=== PATIENT | male | born 1990 | race Caucasian/White ===

== ENCOUNTER 2021-11-28 15:11 | Emergency (ER) | payer OTHER, SELFPAY ==
[2021-11-28 15:12] VITALS: BP 138/82; PULSE 84; RESP 16; TEMP 36.7; O2SAT 97; BMI 20.2
--- NOTE | 2021-11-28 15:34 | EDS_ITS ---
HPI History of Present Illness Chief Complaint: Wound Informant: patient Narrative Narrative: Patient has multiple injuries around the face and head from a cat. It got spooked when a dog jumped on the bed with it. The cat is completely up-to-date on all its shots as it is getting ready to fly back to [facility] today. The patient states he does not think it bit him but he is not 100% sure. It did not get into or involve his eyes. No medical problems No medications No allergies PFSH PFSH Medical History no medical history Home Medications amoxicillin-pot clavulanate 1 tab PO Q12H #10 tab 11/28/21 [Rx Last Taken Unknown] Allergy/AdvReac Type Severity Reaction Status Date / Time No Known Allergies Allergy Verified 11/28/21 15:33 Family History no significant family his Surgical History no surgical history Social History Smoking Status: Never smoker ROS ROS ED Constitutional Constitutional ED: Denies chills or fever(s) Eyes Eyes: Denies blurry vision, change in vision or diplopia ENT ENT ED: Reports other Details: Multiple abrasions/superficial lacerations to forehead and scalp Cardiovascular Cardiovascular: Denies chest pain Respiratory/Chest Respiratory/Chest: Denies dyspnea Gastrointestinal Gastrointestinal: Denies nausea or vomiting Genitourinary Genitourinary ED: Denies dysuria Musculoskeletal Musculoskeletal: Denies myalgias Integumentary Reports Abrasions Neurologic Neurologic: Denies headache(s) EXAM Physical Exam Const Vital Signs: 11/28/21 15:12 Temperature 98.0 F Temperature Source Temporal Pulse Rate 84 Respiratory Rate 16 Blood Pressure 138/82 H Blood Pressure Mean 100 Pulse Ox 97 Oxygen Delivery Method Room Air Positive well nourished and well developed General Appearance ED: well developed and NAD HEENT Reports moist mucous membranes HEENT Narrative: Patient has multiple scratches all about the scalp and forehead. None of these really go deep enough to do any suturing. They are clean. Ointment has been applied. Some of these are very small and certainly could be puncture wounds from the teeth. I cannot ascertain that with certainty. Eyes PERRL and EOMs intact bilaterally Eyes Narrative: No injection or sign of ocular injury. General Eye ED: Negative for pale conjunctiva or scleral icterus Neck supple Chest Wall inspection of chest normal Resp normal respiratory effort Cardio regular rate and regular rhythm Skin Skin Narrative: See above. MDM MDM MDM Narrative Medical decision making narrative: Tetanus will be updated. Will be placed on a short course of Augmentin. We are not on 100% sure if these are all scratches or possible bites. Should return with redness or drainage. Also return with fever swelling or other concerns Discharge Plan Triage Chief Complaint: Wound ED Provider: Jorge Spivey Dx/Rx/DC Orders Clinical Impression: Cat scratch, Cat bite Instructions: Animal Bites and Scratches Prescriptions: New amoxicillin-pot clavulanate 875-125 mg tablet 1 tab PO Q12H Qty: 10 RF: 0 Primary Care Provider: NOT,DEFINED Referrals: NOT,DEFINED [Primary Care Provider] - Activity Restrictions/Additional Instructions: Follow-up with your doctor in [facility] if not better in 3 to 5 days. Disposition Disposition: Home, Self Care
[2021-11-28] MEDS: Amox/Clavulanate 875 MG Tablet PO (15:45)
== END 2021-11-28 15:56 | disposition home or self-care (01) ==
LOC: ED 15:53
PROVIDERS: Emergency Provider Emergency Medicine; Visit Provider Emergency Medicine
DX: S00.01XA Abrasion of scalp, initial encounter (principal); S00.91XA Abrasion of unspecified part of head, initial encounter; W55.01XA Bitten by cat, initial encounter; Z23 Encounter for immunization
CPT/HCPCS: 90471; 90715; 99282